=== PATIENT | female | born 1990 | race Caucasian/White ===

== ENCOUNTER → 2023-12-31 08:33 | Outpatient (CLI) | payer OTHER, SELFPAY ==
[2023-12-31 09:31] LABS: Hemoglobin A1C% w Est Avg Glu 5.5 % (4.0-6.0)
[2023-12-31 10:19] LABS: TSH w/ Reflex to FT4 1.12 uIU/mL (0.47-4.68)
[2023-12-31 18:03] LABS: Rubella Antibody IgG 39.3 IU/mL (>15)
[2024-01-01 09:29] LABS: Rubeola Measles IgG > 300.0 AU/mL (Immune >16.4)
== END ==
PROVIDERS: Referring Provider Student in an Organized Health Care Education/Training Program; Visit Provider Student in an Organized Health Care Education/Training Program
DX: N96 Recurrent pregnancy loss (principal)
CPT/HCPCS: 36415; 83036; 84146; 84443; 86735; 86762; 86765

== ENCOUNTER → 2024-05-02 15:56 | Outpatient (CLI) | payer OTHER, SELFPAY ==
[2024-05-02 18:24] LABS: HCG Quantitative /Beta subunit 10676 mIU/mL
== END ==
PROVIDERS: Referring Provider Student in an Organized Health Care Education/Training Program; Visit Provider Student in an Organized Health Care Education/Training Program
DX: O36.80X0 Pregnancy with inconclusive fetal viability, not applicable or unspecified (principal)
CPT/HCPCS: 36415; 84702

== ENCOUNTER → 2024-05-05 14:37 | Outpatient (CLI) | payer OTHER, SELFPAY ==
[2024-05-05 15:56] LABS: HCG Quantitative /Beta subunit 14439 mIU/mL
== END ==
LOC: LAB 14:38
PROVIDERS: Referring Provider Student in an Organized Health Care Education/Training Program; Visit Provider Student in an Organized Health Care Education/Training Program
DX: O36.80X0 Pregnancy with inconclusive fetal viability, not applicable or unspecified (principal)
CPT/HCPCS: 36415; 84702

== ENCOUNTER → 2024-05-23 10:07 | Outpatient (CLI) | payer OTHER, SELFPAY ==
[2024-05-26 10:08] LABS: Candida species Negative (Negative); Gardnerella vaginalis Negative (Negative); Trichomoas vaginalis Negative (Negative)
== END ==
PROVIDERS: Visit Provider Student in an Organized Health Care Education/Training Program
DX: N89.8 Other specified noninflammatory disorders of vagina (principal)
CPT/HCPCS: 87480; 87510; 87660